=== PATIENT | male | born 1995 | race Asian ===

== ENCOUNTER 2023-09-14 11:48 | Outpatient (CLI) | payer OTHER, SELFPAY ==
[2023-09-14 13:43] LABS: Volume,Semen 0.5 ml (2.0-5.0)
[2023-09-14 13:44] LABS: Semen Viscosity Very Viscous (Normal)
[2023-09-14 13:45] LABS: Motility Quality Good Progression (Mod-Rapid); Sperm Motility 30 % (50-90); WBCs,Semen Moderate
[2023-09-14 13:46] LABS: Sperm Morphology Tail Abnormality (Normal)
[2023-09-14 17:56] LABS: 3Hr Sperm Motility 20 % (50-60)
[2023-09-14 17:57] LABS: 3Hr Motility Quality Weak Progression (Mod-Rapid)
== END 2023-09-14 23:59 | disposition home or self-care (01) ==
PROVIDERS: PCP Family Medicine; Visit Provider Family Medicine
DX: N46.9 Male infertility, unspecified (principal)
CPT/HCPCS: 89320